=== PATIENT | female | born 1945 | race Caucasian/White ===

== ENCOUNTER 2024-08-15 14:56 | Outpatient (AMB) | payer MEDICARE, SELFPAY ==
--- NOTE | 2024-08-15 14:59 | MHC.PC.OV ---
Vital Signs 08/15/24 15:09 08/15/24 15:15 Height 4 ft 10.86 in Weight 145 lb 4 oz BMI 29.5 BP 158/52 H 156/52 H Blood Pressure Location Rt brachial Rt brachial Position Sitting Sitting Respiration 14 Pulse 62 Pulse Source Pulse Oximeter Temp 98.2 F Temp Source Oral Pulse Oximetry (%) 95 Oxygen Delivery Method Room Air Intake Visit Reasons: est care Intake Note: New patient visit Psychiatric Assistant Required: No Accompanied by: Daughter Allergies sulfamethoxazole [From Bactrim] Allergy (Severe, Verified 08/15/24 15:04) Headache trimethoprim [From Bactrim] Allergy (Severe, Verified 08/15/24 15:04) Headache Tobacco use date assessed: 08/15/24 Fall risk assessment: No Falls in past year Last assessed Fall Risk: 08/15/24 Dental Screening Dental Screen Date: 08/15/24 Did you have a dental visit in the last 12 months?: Yes Did you have a dental problem in the last 6 months where you did not have access to dental care?: No Was dental information given to patient?: Patient has dentist HPI HPI Comments History of Present Illness Details 79 year old female with a past medical history of hypertension, PVD, arthritis s/p b/l knee, right hip replacement, COPD, osteoporosis, asthma, left breast cancer, COPD, presenting to [facility] care CV: on cardizem, toprol XL. 156/52. Usually at home 130s-140s. Denies chest pain, dizziness. MSK: Follows with ortho. [facility] predental. Follows with [facility]. Gout-no recent episodes. COPD/Asthma: on prn albuterol. on claritan. Follows with [facility]. Was following with Dr Porter. Mammo 09/03/2023 DXA 08/07/2022 ROS CONSTITUTIONAL: Denies weight loss, fever and chills. HEENT: Denies changes in vision and hearing. RESPIRATORY: Denies SOB and cough. CV: Denies palpitations and CP GI: Denies abdominal pain, nausea, vomiting and diarrhea. : Denies dysuria and urinary frequency. MSK: Denies new myalgia and joint pain. SKIN: Denies rash and pruritus. NEUROLOGICAL: Denies headache PSYCHIATRIC: Denies recent changes in mood. PHYSICAL EXAM: GENERAL: Alert and oriented x 3. NAD EYES: EOMI. Anicteric. HENT: Moist mucous membranes. No scleral icterus. No cervical lymphadenopathy. LUNGS: Clear to auscultation bilaterally. CARDIOVASCULAR: Regular rate and rhythm. No murmur. No JVD. ABDOMEN: Soft, non-tender +bs EXTREMITIES: No edema. Non-tender. SKIN: No rashes or lesions. Warm. NEUROLOGIC: No focal neurological deficits. CN II-XII grossly intact PSYCHIATRIC: Cooperative. Appropriate mood and affect [facility] Medical History Bilateral cataracts Surgical History S/P lumpectomy, right breast History of right hip replacement History of appendectomy Hx of tonsillectomy H/O hernia repair History of bilateral knee replacement Family History Other No pertinent family history Social History Housing: House Alcohol intake: current Patient Tobacco Use Status: Former Tobacco user Cigarette Packs Per Day: 0.5 Years Smoked: 20 e-Cigarette/Vaping Use: Never Used Second Hand Smoke Exposure: No service: No Current occupational status: retired Cognitive needs: No Vision needs: Yes (glasses) Questionnaire PHQ-9 Over the last 2 weeks, how often have you been bothered by any of the following problems? 1. Little interest or pleasure in doing things: not at all 2. Feeling down, depressed, or hopeless: not at all 3. Trouble falling or staying asleep, or sleeping too much: not at all 4. Feeling tired or having little energy: not at all 5. Poor appetite or overeating: not at all 6. Feeling bad about yourself - or that you are a failure or have let yourself or your family down: not at all 7. Trouble concentrating on things, such as reading the newspaper or watching television: not at all 8. Moving or speaking so slowly that other people could have noticed. Or the opposite - being so fidgety or restless that you have been moving around a lot more than usual: not at all 9. Thoughts that you would be better off or of hurting yourself in some way: not at all Total score: 0 Depression Screening Interpretation: Negative Depression Screening Done: Yes 83495 - PHQ-9 Billing: Yes Source: Developed by Drs. Ignacio Santamaria, Emily Joya, Inocencio Brown and colleagues, with an educational zahra from [employer]. Thrive Questionnaire Date Thrive assessed: 08/15/24 I am a: Patient What is your living situation today?: I have a steady place to live Within the past 12 months, did the food you bought not last and you didn't have the money to get more?: Never true Within the past 12 months, did you worry whether your food would run out before you got money to buy more?: Never true Do you have trouble paying for medicines?: No Do you have trouble getting transportation to medical appointments?: No Do you have trouble paying your heating and electricity bill?: No Do you have trouble taking care of your child, family member or friend?: No Do you have trouble with day-to-day activities such as bathing, preparing meals, shopping, managing finances, etc.?: No Are you currently unemployed and looking for a job?: No Are you interested in more education?: No Please select the resources that you would like help with: None Currently or been in a relationship where the following occur: No concerns reported THRIVE Score: 0 AUDIT C Alcohol Use Questionnaire (AUDIT-C) 1. How often do you have a drink containing alcohol?: Monthly or less 2. How many drinks containing alcohol do you have on a typical day when you are drinking?: 1 or 2 3. How often do you have six or more drinks on one occasion?: Never Total Score: 1 SHARRON-7 AMB Questionnaire SHARRON-7 Date SHARRON - 7 assessed: 08/15/24 Feeling nervous, anxious, or on edge: 0 = Not at all Not being able to stop or control worryin = Not at all Worrying too much about different things: 0 = Not at all Trouble relaxin = Not at all Being so restless that it is hard to sit still: 0 = Not at all Becoming easily annoyed or irritable: 0 = Not at all Feeling afraid as if something awful might happen: 0 = Not at all Total SHARRON-7 score (0-4 normal; 5-9 mild; 10-14 moderate; 15-21 severe): 0 Source: Developed by Drs. Ignacio Santamaria, Emily Joya, Inocencio Brown and colleagues, with an educational zahra from [employer]. SHARRON-7 Assessment Billing SHARRON-7 Assessment Tool: SHARRON-7 Assessment 81378 Physical exam (Primary Care) Vital Signs: Last Vital Signs Temp 98.2 F 08/15/24 15:09 Pulse 62 08/15/24 15:09 Resp 14 08/15/24 15:09 BP 156/52 H 08/15/24 15:15 Pulse Ox 95 08/15/24 15:09 Oxygen Delivery Method Room Air 08/15/24 15:09 BMI result Body Mass Index 29.5 Tobacco/Smoking Status: Tobacco use Status Tobacco use date assessed 08/15/24 08/15/24 15:09 Patient Tobacco Use Status Former Tobacco user 08/15/24 15:20 e-Cigarette/Vaping Use Never Used 08/15/24 15:20 PHQ-9: PHQ-9 Score PHQ-9: Total score 0 08/15/24 15:24 Depression Screening Interpretation: Negative Thrive Assessment: Date of Thrive Assessment Date Thrive assessed 08/15/24 08/15/24 15:18 Currently or been in a relationship where the following occur: No concerns reported Coding Level of Care Code New Pt Level 4 (28074) Complex EM visit Add On G2211 Diagnoses Primary osteoarthritis involving multiple joints M15.0 Osteoarthritis location: multiple joints Osteoarthritis type: primary Primary hypertension I10 Hypertension type: primary hypertension Cataract of both eyes, unspecified cataract type H26.9 Cataract type: unspecified Additional Codes SHARRON-7 Assessment Billing - SHARRON-7 Assessment Tool: SHARRON-7 Assessment 32409 ([id number]) PHQ-9 - 76402 - PHQ-9 Billing: Yes ([id number]) Assessment & Plan Assessment & Plan (1) Osteoarthritis: Code(s): M19.90 - Unspecified osteoarthritis, unspecified site Category: Medical Qualifiers: Osteoarthritis location: multiple joints Osteoarthritis type: primary Qualified Code(s): M15.0 - Primary generalized (osteo)arthritis (2) Hypertension: Code(s): I10 - Essential (primary) hypertension Category: Medical Qualifiers: Hypertension type: primary hypertension Qualified Code(s): I10 - Essential (primary) hypertension (3) Bilateral cataracts: Code(s): H26.9 - Unspecified cataract Category: Medical Qualifiers: Cataract type: unspecified Qualified Code(s): H26.9 - Unspecified cataract Plan 79 yo to establish care past medical, surgical, social reviewed Mammo & dxa ordered continue follow up derm BP slightly high in setting of anxiety today-generally well controlled. continue current medication Update labs Orders: Orders Complete Blood Count Auto Diff Today I10 - Essential (primary) hypertension, M19.90 - Unspecified osteoarthritis, unspecified site, Z13.0 - Encounter for screening for diseases of the blood and blood-forming organs and certain disorders involving the immune mechanism, Z98.890 - Other specified postprocedural states LDL Cholesterol Direct Today I10 - Essential (primary) hypertension, M19.90 - Unspecified osteoarthritis, unspecified site, Z13.0 - Encounter for screening for diseases of the blood and blood-forming organs and certain disorders involving the immune mechanism, Z98.890 - Other specified postprocedural states MM screening mammo BI Today Z12.31 - Encounter for screening mammogram for malignant neoplasm of breast XR DEXA axial skeleton Today M81.0 - Age-related osteoporosis without current pathological fracture Comprehensive Met. Panel Today I10 - Essential (primary) hypertension, M19.90 - Unspecified osteoarthritis, unspecified site, Z13.0 - Encounter for screening for diseases of the blood and blood-forming organs and certain disorders involving the immune mechanism, Z98.890 - Other specified postprocedural states Hemoglobin A1c Today I10 - Essential (primary) hypertension, M19.90 - Unspecified osteoarthritis, unspecified site, Z13.0 - Encounter for screening for diseases of the blood and blood-forming organs and certain disorders involving the immune mechanism, Z98.890 - Other specified postprocedural states Medications: New diltiazem HCl CD 180 mg PO DAILY 90 caps 0RF metoprolol succinate ER 50 mg PO DAILY 90 tabs 3RF albuterol sulfate 90 mcg/actuation 2 puffs inhalation Q6H PRN 2 ea 3RF shortness of breath or wheezing
[2024-08-15 15:09] VITALS: BP 158/52; PULSE 62; RESP 14; TEMP 36.8; O2SAT 95; BMI 29.5
[2024-08-15 15:15] VITALS: BP 156/52
--- OUTSIDE RECORDS SUMMARY | 2024-08-15 17:24 | XMS_ITS | Clinical Summary ---
Author Organization [facility] Address [address] [place] [address] Care Team Providers [employer] Cto Name Role Phone Unavailable Primary Care Provider Unavailabl e Medications dilTIAZem CD (CARDIZEM CD) 180 mg 24 hr capsule Take 2 capsules (360 mg total) by mouth 1 (one) time each day. 180 capsule 01/17/2024 Active metoprolol succinate (TOPROL-XL) 50 mg 24 hr tablet Take 1 tablet (50 mg total) by mouth 1 (one) time each day. 90 tablet 03/22/2024 Active Surgical History Surgery Date Site/Laterality Comments BREAST LUMPECTOMY 11/2008 Left PROCEDURE: HISTORICAL BREAST LUMPECTOMY TONSILLECTOMY PROCEDURE: HISTORICAL TONSILLECTOMY CATARACT EXTRACTION 10/2007 Bilateral PROCEDURE: HISTORICAL CATARACT REMOVAL HERNIA REPAIR PROCEDURE: HISTORICAL HERNIA REPAIR/UMB HERNIA REPAIR 06/2014 Right PROCEDURE: HISTORICAL HERNIA REPAIR/ING; COMMENT: R inguinal and incarcerated appendix repair. (07/2013 also recurrent R ing hernial repair) OTHER SURGICAL HISTORY 2012 PROCEDURE: NV EXCISION MALIGNANT LESION F/E/E/N/L 0.5 CM/<; COMMENT: R jaw line. Previous skin cancer 1983, 1988 KNEE SURGERY 09/2019 Right PROCEDURE: HISTORICAL KNEE SURGERY; COMMENT: right total knee arthroplasty HIP ARTHROPLASTY 01/2020 Right PROCEDURE: HISTORICAL HIP REPLACEMENT; COMMENT: right hip total arthroplasty TOTAL KNEE ARTHROPLASTY PROCEDURE: NV ARTHRP KNE CONDYLE&PLATU MEDIAL&LAT COMPARTMENTS COLONOSCOPY PROCEDURE: HISTORICAL COLONOSCOPY APPENDECTOMY PROCEDURE: NV APPENDECTOMY KNEE SURGERY 03/02/2023 Left PROCEDURE: HISTORICAL KNEE SURGERY; COMMENT: left total knee arthroplasty Medical History Medical History Date Comments History of rectal polypectomy 05/17/2019 DX :History of rectal polypectomy Diverticulosis 05/17/2019 DX:Diverticulosi s Asthma 05/17/2019 DX:Asthma HTN (hypertension) 05/17/2019 DX:HTN (hyper tension) 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 Arthritis 05/17/2019 DX:Arthritis; CO MMENT: R knee and hip. COPD (chronic obstructive pu lmonary disease) ([facility] V24, [facility] V28) 05/17/2019 DX:COPD (chronic o bstructive pulmonary disease) ([facility]) History of basal cell carcinoma (BCC) 05/17/2019 DX:History of basal cell carcinoma (BCC); COMMENT: facial Glaucoma 05/17/2019 DX:Glaucoma; COM MENT: bilaterally Allergic rhinitis 05/17/2019 DX:Allergic rh initis CKD (chronic kidney disease) stage 3, GFR 30-59 ml/min ([facility] V24, [facility] V28) 05/17/2019 DX:CKD (chronic kidney disea se) stage 3, GFR 30-59 ml/min ([facility]) History of cataract 05/17/2019 DX:History o f cataract; COMMENT: bilateral Bursitis 05/17/2019 DX:Bursitis; COM MENT: R shoulder History of cellulitis 05/17/2019 DX:History of cellulitis; COMMENT: Left leg 11/2018. Malignant neoplasm of female breast ([facility] V24, [facility] V28) DX:Malignant neoplasm of fe male breast ([facility]) Cervical spondylosis without myelopathy DX:Cervical spondylosis without myelopathy Family History Medical History Relation Name Comments Abdominal Aortic Anuerysm (AAA) Brother 1 Other: oral cancer Brother 2 tobacco No Known Problems Daughter Hypertension Mother No Known Problems Son 1 No Known Problems Son 2 Relation Name Status Comments Brother 1 Brother 2 Daughter Alive Father Mother Son 1 Alive Son 2 Alive Social History Tobacco Use Types Packs/Day Years Used Date Smoking Tobacco: Former Cigarettes Q uit: 09/18/1989 Smokeless Tobacco: Never Alcohol Use Standard Drinks/Week Comments Yes 0 (1 standard drink = 0.6 oz pur e alcohol) Comments Unknown Sex and Gender Information Value Date Recorded Sex Assigned at Not on file Legal Sex Female 12:49 PM EST Gender Identity Not on file Sexual Orientation Not on file Obstetrics History Last Filed Vital Signs Vital Sign Reading Time Taken Comments Blood Pressure 132/50 08/19/2023 1:16 PM EDT Pulse 64 08/19/2023 1:08 PM EDT Temperature - - Respiratory Rate - - Oxygen Saturation - - Inhaled Oxygen Concentration - - Weight 62.8 kg (138 lb 6.4 oz) 12/01/2023 3:18 P M EDT Height 152.4 cm (5') 12/01/2023 3:18 PM EDT Body Mass Index 27.03 12/01/2023 3:18 PM EDT Plan of Treatment Health Maintenance Due Date Last Done Comments Cervical Cancer Screening: Pap Smear 1965 RSV Immunization Adult Patients (1 - 1-dose 75+ series) 08/16/2019 Cholesterol Screening (Lipid Panel) 01/17/2021 Depression Screening 01/17/2021 Falls Risk Assessment 01/17/2021 Hepatitis C Screening 01/17/2021 Social Influencers of Health Screening 01/17/2021 Hypertension/CHF/CAD Annual BMP Blood Test 03/30/2023 COVID-19 Vaccine ( season) 2023 11/28/2021, 07/29/2021, 12/22/2020, Additional history exists Influenza Vaccine (Season Ended) 2024 11/13/2020, 11/27/2019, 11/30/2018, Additional history exists DTaP,Tdap,and Td Vaccines (3 - Td or Tdap) 06/03/2030 06/03/2020, 11/05/2010 Osteoporosis Screening (Bone Density Screening) 08/27/2032 08/27/2022, 08/26/2020, 04/22/2018 Pneumococcal Vaccine: 50+ Years Completed 01/14/2015, 11/05/2010 Zoster Vaccines Completed 01/10/2019, 09/29, 07/05/2006 HIB Vaccines Aged Out No longer eligi ble based on patient's age to complete this topic HPV Vaccines Aged Out No longer eligi ble based on patient's age to complete this topic Hepatitis A Vaccines Aged Out No long er eligible based on patient's age to complete this topic Hepatitis B Vaccines Aged Out No long er eligible based on patient's age to complete this topic IPV Vaccines Aged Out No longer eligi ble based on patient's age to complete this topic MMR Vaccines Aged Out No longer eligi ble based on patient's age to complete this topic Meningococcal ACWY Vaccine Aged Out N o longer eligible based on patient's age to complete this topic Meningococcal B Vaccine Aged Out No l onger eligible based on patient's age to complete this topic RSV Immunization Patients Under 20 months Aged Out No longer eligible based on patient's age to complete this topic Varicella Vaccines Aged Out No longer eligible based on patient's age to complete this topic Procedures Procedure Name Priority Date/Time Associated Diagnosis Comments HILDA DEXA AXIAL SKELETON Routine 08/27/2022 5:13 PM EDT Encounter for screening mammogram for malignant neoplasm of breast from Last 3 Months or Most Recently Relevant to Health Maintenance Results * HILDA DEXA AXIAL SKELETON (08/27/2022 5:13 PM EDT) Anatomical Region Laterality Modality Mammography 08/27/2022 11:0 4 AM EDT Narrative 08/27/2022 5:13 PM EDT [facility] Diagnostic Imaging Department [address] [place] [address] Patient: ??AILIN TRIVEDI ?/Age/Sex: 1945 - 77 - F Unit#: ??[id number] ? Location/Status: ??SPDIMAM/REG CLI ? Mnemonic/Ordering Site: ??MAMDEXAAX/SPMAM Ordering Physician: ??MARY RAMOS DO Hilda Dexa Axial Skeleton - 08/27/22 1140 Report Status:Signed History: Low estrogen state due to menopause. Right hip replacement. Parent hip fracture. Comparison: 08/26/20 Findings: Bone densitometry is performed utilizing dual energy x-ray absorptiometry (DXA) in the [employer] unit. The lumbar spine and left proximal femur are evaluate d in the AP projection. The FRAX questionaire was completed. The results indicate low bone mass (osteopenia), with a lumbar spine T-score of -2.2. The Z score is -0.4, indicating bone mineral density within the range of normal for age. There has been no statistically significant change. ??The detailed DEXA report will be mailed to the referring physician's office. DualFemur FRAX: 10-year Probability of Fracture: Major Osteoporotic 26.9 percent ??Hip 16.7 percent. IMPRESSION: Osteopenia. [id number] Dictating Physician: ??MICHELLE HARRINGTON MD Electronically Signed by: ??MICHELLE HARRINGTON MD Dic Date/Time: ??08/27/22 171 Sign date/Time: ??08/27/22 171 Procedure Note Michelle Harrington MD - 04/06/2023 [facility] Diagnostic Imaging Department [address] [place], [place] [id number] Patient: AILIN TRIVEDI/Age/Sex: 1945 - 77 - F Unit#: [id number] Location/Status: SPDIMAM/REG CLI [facility] Ordering Physician: MAYR RAMOS DO Hilda Dexa Axial Skeleton - 08/27/22 - 1145 Report Status:Signed History: Low estrogen state due to menopause. Right hip replacement.Parent hip fracture. Comparison: 08/26/20 Findings: Bone densitometry is performed utilizing dual energy x-ray absorptiometry(DXA) in the [employer] unit. The lumbar spine and left proximal femur areevaluate d in the AP projection. The FRAX questionaire was completed. The results indicate low bone mass (osteopenia), with a lumbar spineT-score of -2.2. The Z score is -0.4, indicating bone mineral density within therange of normal for age. There has been no statistically significant change. The detailed DEXAreport will be mailed to the referring physician's office. DualFemur FRAX: 10-year Probability of Fracture: Major Osteoporotic 26.9 percent Hip 16.7 percent. IMPRESSION: Osteopenia. [id number] Dictating Physician: MICHELLE HARRINGTON MD Electronically Signed by: MICHELLE HARRINGTON MD Dic Date/Time: 08/27/22 171 Sign date/Time: 08/27/22 1713 Mary Ramos DO IMG BI PROCEDURES Final Result from Last 3 Months or Most Recently Relevant to Health Maintenance Advance Directives Documents on File Type Date Recorded Patient Insurance Healthcare Representative Expl anation Health Care Decision (hx) 12/11/2010 AD [employer] DIRECTIVE Health Care Decision (hx) 12/11/2010 AD [employer] DIRECTIVE Health Care Decision (hx) 12/11/2010 AD [employer] DIRECTIVE Health Care Decision (hx) 12/11/2010 AD [employer] DIRECTIVE Health Care Decision (hx) 12/11/2010 AD [employer]DS DIRECTIVE Health Care Decision (hx) 12/11/2010 AD [employer]MONDS DIRECTIVE Health Care Decision (hx) 12/11/2010 AD [employer]MONDS DIRECTIVE Health Care Decision (hx) 12/11/2010 AD [employer]MONDS DIRECTIVE Health Care Decision (hx) 12/11/2010 AD [employer] DIRECTIVE Health Care Decision (hx) 12/11/2010 AD [employer] DIRECTIVE Health Care Decision (hx) 12/11/2010 AD [employer]DS DIRECTIVE Health Care Decision (hx) 12/11/2010 AD [employer]MONDS DIRECTIVE Health Care Decision (hx) 12/11/2010 AD [employer]MONDS DIRECTIVE Health Care Decision (hx) 12/11/2010 AD [employer]MONDS DIRECTIVE Health Care Decision (hx) 12/11/2010 AD [employer]MONDS DIRECTIVE Health Care Decision (hx) 12/11/2010 AD [employer]MONDS DIRECTIVE Health Care Decision (hx) 12/11/2010 AD [employer] DIRECTIVE Health Care Decision (hx) 12/11/2010 AD [employer] DIRECTIVE Health Care Decision (hx) 12/11/2010 AD [employer]DS DIRECTIVE Health Care Decision (hx) 12/11/2010 AD [employer]DS DIRECTIVE Health Care Decision (hx) 12/11/2010 AD [employer]MONDS DIRECTIVE Health Care Decision (hx) 12/11/2010 AD EDMONDS DIRECTIVE Health Care Decision (hx) 12/11/2010 AD [employer]MONDS DIRECTIVE Health Care Decision (hx) 12/11/2010 AD [employer]MONDS DIRECTIVE Health Care Decision (hx) 12/11/2010 AD [employer]MONDS DIRECTIVE Health Care Decision (hx) 12/11/2010 AD [employer]MONDS DIRECTIVE Health Care Decision (hx) 12/11/2010 AD [employer]MONDS DIRECTIVE Health Care Decision (hx) 12/11/2010 AD EDMONDS DIRECTIVE
== END 2024-08-15 15:37 | disposition home or self-care (01) ==
LOC: HO.HMCFM 14:57
PROVIDERS: PCP Internal Medicine; Visit Provider Internal Medicine
DX: M15.0 Primary generalized (osteo)arthritis (principal); I10 Essential (primary) hypertension; H26.9 Unspecified cataract

== ENCOUNTER 2024-08-15 14:56 | Outpatient (REF) | payer MEDICARE, SELFPAY ==
[2024-08-15 17:30] LABS: MANUAL DIFF FLAG NO
[2024-08-15 17:51] LABS: Basophils Absolute Auto 0.1 X10*3/uL (0.0-0.2); Basophils Percent Auto 0.7 % (0-2); Eosinophils Absolute Auto 0.2 X10*3/uL (0.0-0.4); Eosinophils Percent Auto 2.7 % (0-4); Hemoglobin 13.1 g/dl (12.0-16.0); Imm Gran Abs Auto 0.02 X10*3/uL (0.00-0.03); Imm Gran Pct Auto 0.3 % (0.0-0.4); Lymphocytes Absolute Auto 1.6 X10*3/uL (1.2-4.9); Lymphocytes Percent Auto 23.2 % (20-40); Mean Corpuscular HGB Conc 33.6 g/dl (31.0-35.0); Mean Corpuscular Hemoglobin 29.6 pg (27.0-33.0); Mean Corpuscular Volume 88.2 fL (80.0-98.0); Mean Platelet Volume 9.2 fL (9.4-12.3); Monocytes Absolute Auto 0.5 X10*3/uL (0.1-1.2); Monocytes Percent Auto 7.1 % (2-11); Neutrophils Absolute Auto 4.6 x10*3/uL (2.0-8.3); Platelet Count 323 X10*3/uL (160-400); Red Blood Count 4.42 X10*6/uL (4.20-5.50); Red Cell Distribution Width 12.4 % (11.0-16.0); White Blood Count 6.9 X10*3/uL (4.8-10.8)
[2024-08-15 17:59] LABS: Alanine Aminotransferase 16 U/L (0-31); Albumin Level 4.5 g/dL (3.5-5.0); Alkaline Phosphatase 84 U/L (39-117); Anion Gap 13 (12-20); Aspartate Amino Transferase 29 U/L (5-31); Bilirubin Total 0.7 mg/dL (0.0-1.0); Blood Urea Nitrogen 19 mg/dL (9-16); Calcium 10.2 mg/dL (8.4-10.2); Carbon Dioxide 28 mmol/L (22-29); Chloride 105 mmol/L (96-108); Estimated Glomerular Filt Rate 43; Glucose Random 87 mg/dL (60-115); Potassium 4.5 mmol/L (3.3-5.1); Sodium 141 mmol/L (135-145); Total Protein 7.8 g/dL (6.5-8.0)
[2024-08-16 06:05] LABS: Estimated Average Glucose 105 mg/dL; Hemoglobin A1c % 5.3 % (<6.0); Total Hemoglobin (HGBA1C) 3434.0315 umol/L
[2024-08-17 13:23] LABS: LDL Cholesterol Direct 120 mg/dL (<100)
== END 2024-08-15 14:57 | disposition home or self-care (01) ==
LOC: HO.WFDLDS 14:56
PROVIDERS: PCP Internal Medicine; Visit Provider Internal Medicine
DX: Z76.89 Persons encountering health services in other specified circumstances (principal); M15.0 Primary generalized (osteo)arthritis; I10 Essential (primary) hypertension; H26.9 Unspecified cataract; I73.9 Peripheral vascular disease, unspecified; J44.9 Chronic obstructive pulmonary disease, unspecified; Z13.0 Encounter for screening for diseases of the blood and blood-forming organs and certain disorders involving the immune mechanism; Z98.890 Other specified postprocedural states; Z13.1 Encounter for screening for diabetes mellitus; Z13.30 Encounter for screening examination for mental health and behavioral disorders, unspecified; Z13.31 Encounter for screening for depression
CPT/HCPCS: 36415; 80053; 83036; 83721; 85025; 96127; 99202